=== PATIENT | female | born 2005 | race Caucasian/White ===

== ENCOUNTER 2023-03-21 15:43 | Inpatient (IN) ==
--- NOTE | 2023-03-21 16:06 | ED Triage Note ---
Date of Service March 21, 2023 History of Present Illness This patient was briefly evaluated while in triage. An abbreviated physical exam was performed. This patient is a 18-year-old Female who presents to the ED for evaluation of upper back, shoulder, and upper chest pain that started this morning. Seems to be more in her muscles. No SOB. No fevers or URI symptoms. She went to the gym yesterday, but wasn't lifting heavy weights. Physical Exam GENERAL: Non-toxic and in no acute distress. HEENT: Pupils equal. No obvious scleral icterus. HEART: Regular rate and rhythm. LUNGS: Clear to auscultation. No accessory muscle use. ABDOMEN: Soft, non-tender to palpation. NEURO: Alert and oriented. No obvious neurological deficits on quick neuro exam. MUSCULOSKELETAL: No tenderness to palpation of the cervical, thoracic, or lumbar spine. Tender to palpation over the bilateral trapezius muscles and the left pectoralis muscles. Full ROM of the left shoulder with minimal pain. Initial orders for labs and / or imaging were placed and patient was placed in the waiting area until a bed is available. Please see further documentation for the full ED course.
--- NOTE | 2023-03-21 16:36 | XRay Report ---
XR chest 1V not portable CLINICAL HISTORY: Atypical chest pain. COMPARISON STUDY: No previous studies for comparison. FINDINGS: Lung volumes are normal. Lungs are clear. There is no pneumothorax or pleural effusion. Car diac size is normal. Mediastinal contours are normal. There is no evidence for pulmonary edema. IMPRESSION: No acute cardiopulmonary findings. ACT 112: Negative or not required by law. Electronically signed by: Ralph Camara M.D. 03/21/2023 4:34 PM
--- NOTE | 2023-03-21 17:02 | Emergency Department Note ---
Impression & Plan Chest pain, Elevated troponin, Nausea, vomiting and diarrhea ED Provider Note CHIEF COMPLAINT: Chest and upper back pain HISTORY OF PRESENT ILLNESS: This 18-year-old female patient presents to the emergency department via private vehicle for evaluation of chest and upper back pain. The patient states the pain started yesterday. She was sick with nausea and vomiting from through Sunday. She states she was feeling well enough yesterday to go to the gym where she walked on the treadmill and did back exercises. She denies exertional symptoms at this time. She does admit to al cohol use over the weekend as well as yesterday. She denies any drug use. The patient states she has a history of cardiac disease in her uncle, but is uncertain of what the disease is. She states that she believes her brother has palpitations and notes she was seen by clinical safety specialist without any diagnosis. The patient denies any shortness of breath. No persistent nausea or vomiting. The pain is not worse with exacerbation, movement. The left shoulder pain is somewhat worse with palpation. She has not taken any medication for her symptoms. She is eating and drinking without difficulty. No upper respiratory infection symptoms including congestion, runny nose, sore throat, or cough. Pat iejose denies any leg pain or swelling. She denies any history of DVT or PE. Pt. is on OCPs. REVIEW OF SYSTEMS: A 10 system review of systems was performed with positives and pertinent negatives listed in the history of present illness. All other systems were reviewed and are negative. ALLERGIES: None PHYSICAL EXAM: VITALS: Vitals are noted on the nurse's note and reviewed by myself. Vital signs stable. GENERAL: This is a 18-year-old, in no acute distress, nondiaphoretic, well-developed well-nourished. SKIN: The skin was without rashes, erythema, edema, or bruising. There is no tenting of the skin. Capillary refill less than 2 seconds. HEAD: Normocephalic atraumatic. EARS: External auditory canals clear, tympanic membranes pearly quinteros without erythema or effusion bilaterally. No hemotympanum. Negative granda sign EYES: Pupils equal round and reactive to light and accommodation. Conjunctivae without injection, sclerae without icterus. Extraocular movements intact. NOSE: Patent, turbinates without inflammation or discharge. No sinus tenderness. MOUTH: Mucous membranes moist. Tonsils are not enlarged. Pharynx without erythema or exudate. Uvula midline. Airway patent. Tongue does not deviate. NECK: Supple without nuchal rigidity. No lymphadenopathy. No thyromegaly. Cervical spine is nontender. No JVD. HEART: Regular rate and rhythm without murmurs gallops or rubs. LUNGS: Clear to auscultation bilaterally without wheezes, rales or rhonchi. No retractions or accessory muscle use. ABDOMEN: Positive bowel sounds x 4. Soft, nontender, without masses or organomegaly. Macedo sign negative. No guarding or rebound tenderness. MUSCULOSKELETAL: No muscle atrophy, erythema, or edema noted. Tenderness to palpation of the trapezius muscle on the left. Full range of motion without joint tenderness in all extremities. No tenderness to palpation. Normal gait. Strength 5/5 throughout. NEURO: Patient was alert and oriented to person place and time. No focal neurological deficits. 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 The monitor showed a normal sinus rhythm at a ventricular rate of 90 bpm, per my interpretation. EKG #1 at 1702, per my interpretation: Normal sinus rhythm with T wave inversion in the anterior lateral leads. Ventricular rate of [address] elevation or depression. No prior EKG available for comparison EKG #2 at 1954, per my interpretation: Sinus tachycardia with a ventricular rate of 113 bpm. Rightward axis. T wave inversion in the anterior lateral leads. No ST elevation or depression. EMERGENCY DEPARTMENT COURSE: The patient was seen and evaluated as above. Patient was initially seen in triage by triage provider due to high volume, high acuity in the emergency department Chest x-ray and EKG #1 ordered by triage provider were reviewed by me. No acute findings. The patient was examined. There is some tenderness of the trapezius muscle on the left. No reproducible chest wall tenderness to palpation. I had a conversation regarding the work-up with the patient as well as her mother on speaker phone in the room. Utilizing shared decision-making, we did elect to perform further evaluation with labs. IV access obtained, labs drawn. Labs were reviewed. Mild leukocytosis of 11. 48. No anemia or thrombocytopenia. INR 1.0. D-dimer 340. Renal, hepatic function and electrolytes without significant abnormality. Lipase 22. Procalcitonin less than 0.05. TSH 1.816. hCG negative. The patient's high- sensitivity troponin is mildly elevated at 16.3. I discussed this finding with the patient at bedside. I recommended further laboratory evaluation, repeat troponin testing, as well as CT angiogram of the chest to rule out PE or other intrathoracic abnormality. The patient was agreeable. Additional labs ordered and CT angiogram completed. This was reviewed by radiologist and was negative for acute pathology. [place], Lyme disease testing, and respiratory bio fire testing were negative for acute abnormality. Repeat troponin testing was further elevated at 28.9. I did discuss these findings with the patient at bedside and her mother on speaker phone on the patient's cell phone. I advised them of the work-up completed here in the emergency department, the additional testing, CT angiogram results. Given the elevation in troponin, unclear etiology of her symptoms, but I am concerned for possible cardiac disease. No evidence of acute coronary syndrome at this time, however I do recommend admission to the hospital for observation/admission for further evaluation and echocardiogram. The patient and her mother were agreeable with this treatment plan. The patient's mother notes she plans to drive here to be with the patient. The patient was initially hesitant to stay in the hospital, but after conversation with her mother was agreeable. I did discuss the case with the dude ranch manager. I discussed the case with Dr. Barker, [facility] hospitalist physician. He did agree to see and evaluate the patient. Please see hospitalist dictation regarding ongoing management care of this patient. I did work closely with my attending physician throughout this case. We did have several meaningful conversations regarding this patient, recommendations for further work-up, as well as admission. Differential diagnosis includes Cardiac ischemia, aortic dissection, pulmonary embolism, pneumothorax, pneumonia, pericarditis, myocarditis, esophageal rupture, GERD, cholecystitis, pancreatitis, musculoskeletal, as well as other pathologies. I attest that I have personally reviewed the patient's current medication list. Blood Pressure Screening: Patient was found to have a slightly elevated blood pressure due to circumstances. I do not believe that the patient requires hypertension monitoring. The chart was completed utilizing [employer] voice recognition software. Grammatical errors, random word insertions, pronoun errors, and incomplete sentences are an occasional consequence of this system due to software limitations, ambient noise, and hardware issues. Any formal questions or concerns about the content, text, or information contained within the body of this dictation should be directly addressed to the provider for clarification. Past Med/Surg History Medical History No pertinent past medical history Social History Smoking Status: Never smoker Preferred Language: Beninese Feels Safe at Home: Yes Home Meds Home Medications Medication Instructions Recorded Confirmed drospirenone 3 mg-ethinyl 1 tab PO QPM 03/21/23 03/21/23 estradiol 0.02 mg tablet (Vestura (28)) Results & Data (ED) Vital Signs Vital Signs - 24 hr 03/21/23 16:04 03/21/23 17:06 03/21/23 19:44 Temperature 36.7 C Temperature Source Temporal Artery Scan Pulse Rate 90 100 H Pulse Rate [Finger] 125 H Respiratory Rate 18 20 14 Respiratory Effort / Characteristics Non-Labored Non-Labored Spontaneous Respiratory Depth Normal Normal Blood Pressure 158/103 H 160/99 H Blood Pressure [Right Arm] 135/83 Blood Pressure Mean 121 119 Blood Pressure Mean [Right Arm] 100 Pulse Oximetry 100 97 100 Oxygen Delivery Method Room Air Sepsis Recent Fever Within 48 Hours No Sepsis New/Unexplained Change in Mental Status No Sepsis Action Taken by Nursing No Action Required 03/21/23 20:59 03/21/23 21:00 03/21/23 22:07 Temperature Temperature Source Pulse Rate Pulse Rate [Finger] 108 H 110 H Respiratory Rate 16 14 Respiratory Effort / Characteristics Non-Labored Spontaneous Non-Labored Spontaneous Respiratory Depth Normal Normal Blood Pressure Blood Pressure [Right Arm] 141/86 H 133/92 Blood Pressure Mean Blood Pressure Mean [Right Arm] 104 105 Pulse Oximetry 100 100 110 H Oxygen Delivery Method Room Air Room Air Room Air Sepsis Recent Fever Within 48 Hours Sepsis New/Unexplained Change in Mental Status Sepsis Action Taken by Nursing Laboratory Data 03/21/23 17:30 03/21/23 17:30 Lab Results 03/21/23 03/21/23 03/21/23 Range/Units 17:30 17:30 17:30 WBC 11.48 H (4.8-10.8) K/ul RBC 4.87 (4.20-5.40) M/uL Hgb 14.2 (12.0-16.0) g/dl Hct 39.1 (37.0-47.0) % MCV 80.3 (80.0-100.0) fL MCH 29.2 (25.0-34.0) pg MCHC 36.3 H (32.0-36.0) g/dL RDW Std Deviation 36.4 (36.4-46.3) fL RDW Coeff of Baltazar 12.5 (11.5-14.5) % Plt Count 264 (130-400) K/uL MPV 10.1 (9.4-12.4) fL Immature Gran % (Auto) 0.4 % Neut % (Auto) 75.8 % Lymph % (Auto) 14.3 % [place] % (Auto) 8.4 % Eos % (Auto) 0.8 % Baso % (Auto) 0.3 % Neut # (Auto) 8.71 H (1.40-6.50) K/uL Lymph # (Auto) 1.64 (1.20-3.40) K/uL [place] # (Auto) 0.96 H (0.11-0.59) K/uL Eos # (Auto) 0.09 (0.00-0.50) K/uL Baso # (Auto) 0.03 (0.00-0.20) K/uL Immature Gran # (Auto) 0.05 (0.01-0.20) K/uL PT 10.5 (9.0-12.0) Seconds INR 1.0 (0.9-1.1) APTT 28.5 (21.0-31.0) Seconds PTT Ratio 1.0 D-Dimer 340 (0-500) ug/L FEU Sodium 137 (136-145) mmol/L Potassium 3.3 L (3.5-5.1) mmol/L Chloride 104 (98-107) mmol/L Carbon Dioxide 24 (21-32) mmol/L Anion Gap 9 (3-11) BUN 9 (6-23) mg/dl Creatinine 0.69 (0.6-1.2) mg/dl Est Cr Clr Drug Dosing 87.1 ml/min Est GFR ( Amer) 145.2 ml/min Est GFR (Non-Af Amer) 125.3 ml/min BUN/Creatinine Ratio 13.0 (10-20) Glucose 98 (70-99(Fasting)) mg/dl Calcium 8.9 (8.6-10.3) mg/dl Magnesium 1.4 L (1.7-2.4) mg/dl Total Bilirubin 0.4 (0.2-1.0) mg/dl AST 21 (13-39) U/L ALT 21 (7-52) U/L Alkaline Phosphatase 48 (34-104) U/L Total Creatine Kinase 41 (26-192) U/L Troponin I High Sens 16.3 H (0-14) pg/ml Total Protein 7.1 (6.0-8.3) gm/dl Albumin 4.1 (3.4-5.0) gm/dl Globulin 3.0 (2.5-4.0) gm/dl Albumin/Globulin Ratio 1.4 (0.9-2) Lipase 22 (11-82) U/L Procalcitonin (0-0.5) ng/ml TSH (0.300-4.500) uIu/ml HCG, Qual (Negative) Adenovirus (PCR) (NotDetected) Anaplasma Smear Babesia Smear B. pertussis DNA (PCR) (NotDetected) B.parapertussis DNA PCR (NotDetected) Lyme Disease IgG Ab (Negative) Lyme Disease IgM Ab (Negative) C. pneumoniae DNA (PCR) (NotDetected) Coronavirus OC43 (PCR) (NotDetected) Coronavirus HKU1 (PCR) (NotDetected) Coronavirus 229E (PCR) (NotDetected) SARS-CoV-2 (PCR) (NotDetected) Coronavirus NL63 (PCR) (NotDetected) Monoscreen (Negative) Human Metapneumovir PCR (NotDetected) Influenza Type A (PCR) (NotDetected) Influenza Type B (PCR) (NotDetected) M. pneumoniae (PCR) (NotDetected) Parainfluenza 1 (PCR) (NotDetected) Parainfluenza 2 (PCR) (NotDetected) Parainfluenza 3 (PCR) (NotDetected) Parainfluenza 4 (PCR) (NotDetected) RSV (PCR) (NotDetected) Entero/Rhino (PCR) (NotDetected) 03/21/23 03/21/23 03/21/23 Range/Units 17:30 17:30 20:00 WBC (4.8-10.8) K/ul RBC (4.20-5.40) M/uL Hgb (12.0-16.0) g/dl Hct (37.0-47.0) % MCV (80.0-100.0) fL MCH (25.0-34.0) pg MCHC (32.0-36.0) g/dL RDW Std Deviation (36.4-46.3) fL RDW Coeff of Baltazar (11.5-14.5) % Plt Count (130-400) K/uL MPV (9.4-12.4) fL Immature Gran % (Auto) % Neut % (Auto) % Lymph % (Auto) % [place] % (Auto) % Eos % (Auto) % Baso % (Auto) % Neut # (Auto) (1.40-6.50) K/uL Lymph # (Auto) (1.20-3.40) K/uL [place] # (Auto) (0.11-0.59) K/uL Eos # (Auto) (0.00-0.50) K/uL Baso # (Auto) (0.00-0.20) K/uL Immature Gran # (Auto) (0.01-0.20) K/uL PT (9.0-12.0) Seconds INR (0.9-1.1) APTT (21.0-31.0) Seconds PTT Ratio D-Dimer (0-500) ug/L FEU Sodium (136-145) mmol/L Potassium (3.5-5.1) mmol/L Chloride (98-107) mmol/L Carbon Dioxide (21-32) mmol/L Anion Gap (3-11) BUN (6-23) mg/dl Creatinine (0.6-1.2) mg/dl Est Cr Clr Drug Dosing ml/min Est GFR ( Amer) ml/min Est GFR (Non-Af Amer) ml/min BUN/Creatinine Ratio (10-20) Glucose (70-99(Fasting)) mg/dl Calcium (8.6-10.3) mg/dl Magnesium (1.7-2.4) mg/dl Total Bilirubin (0.2-1.0) mg/dl AST (13-39) U/L ALT (7-52) U/L Alkaline Phosphatase (34-104) U/L Total Creatine Kinase (26-192) U/L Troponin I High Sens (0-14) pg/ml Total Protein (6.0-8.3) gm/dl Albumin (3.4-5.0) gm/dl Globulin (2.5-4.0) gm/dl Albumin/Globulin Ratio (0.9-2) Lipase (11-82) U/L Procalcitonin (0-0.5) ng/ml TSH 1.816 (0.300-4.500) uIu/ml HCG, Qual Negative (Negative) Adenovirus (PCR) Not Detected (NotDetected) Anaplasma Smear Babesia Smear B. pertussis DNA (PCR) Not Detected (NotDetected) B.parapertussis DNA PCR Not Detected (NotDetected) Lyme Disease IgG Ab (Negative) Lyme Disease IgM Ab (Negative) C. pneumoniae DNA (PCR) Not Detected (NotDetected) Coronavirus OC43 (PCR) Not Detected (NotDetected) Coronavirus HKU1 (PCR) Not Detected (NotDetected) Coronavirus 229E (PCR) Not Detected (NotDetected) SARS-CoV-2 (PCR) Not Detected (NotDetected) Coronavirus NL63 (PCR) Not Detected (NotDetected) Monoscreen (Negative) Human Metapneumovir PCR Not Detected (NotDetected) Influenza Type A (PCR) Not Detected (NotDetected) Influenza Type B (PCR) Not Detected (NotDetected) M. pneumoniae (PCR) Not Detected (NotDetected) Parainfluenza 1 (PCR) Not Detected (NotDetected) Parainfluenza 2 (PCR) Not Detected (NotDetected) Parainfluenza 3 (PCR) Not Detected (NotDetected) Parainfluenza 4 (PCR) Not Detected (NotDetected) RSV (PCR) Not Detected (NotDetected) Entero/Rhino (PCR) Not Detected (NotDetected) 09/13/23 09/13/23 09/13/23 Range/Units 20:54 20:54 20:54 WBC (4.8-10.8) K/ul RBC (4.20-5.40) M/uL Hgb (12.0-16.0) g/dl Hct (37.0-47.0) % MCV (80.0-100.0) fL MCH (25.0-34.0) pg MCHC (32.0-36.0) g/dL RDW Std Deviation (36.4-46.3) fL RDW Coeff of Baltazar (11.5-14.5) % Plt Count (130-400) K/uL MPV (9.4-12.4) fL Immature Gran % (Auto) % Neut % (Auto) % Lymph % (Auto) % [place] % (Auto) % Eos % (Auto) % Baso % (Auto) % Neut # (Auto) (1.40-6.50) K/uL Lymph # (Auto) (1.20-3.40) K/uL [place] # (Auto) (0.11-0.59) K/uL Eos # (Auto) (0.00-0.50) K/uL Baso # (Auto) (0.00-0.20) K/uL Immature Gran # (Auto) (0.01-0.20) K/uL PT (9.0-12.0) Seconds INR (0.9-1.1) APTT (21.0-31.0) Seconds PTT Ratio D-Dimer (0-500) ug/L FEU Sodium (136-145) mmol/L Potassium (3.5-5.1) mmol/L Chloride (98-107) mmol/L Carbon Dioxide (21-32) mmol/L Anion Gap (3-11) BUN (6-23) mg/dl Creatinine (0.6-1.2) mg/dl Est Cr Clr Drug Dosing ml/min Est GFR ( Amer) ml/min Est GFR (Non-Af Amer) ml/min BUN/Creatinine Ratio (10-20) Glucose (70-99(Fasting)) mg/dl Calcium (8.6-10.3) mg/dl Magnesium (1.7-2.4) mg/dl Total Bilirubin (0.2-1.0) mg/dl AST (13-39) U/L ALT (7-52) U/L Alkaline Phosphatase (34-104) U/L Total Creatine Kinase (26-192) U/L Troponin I High Sens 28.9 H D (0-14) pg/ml Total Protein (6.0-8.3) gm/dl Albumin (3.4-5.0) gm/dl Globulin (2.5-4.0) gm/dl Albumin/Globulin Ratio (0.9-2) Lipase (11-82) U/L Procalcitonin (0-0.5) ng/ml TSH (0.300-4.500) uIu/ml HCG, Qual (Negative) Adenovirus (PCR) (NotDetected) Anaplasma Smear See Comment Babesia Smear See Comment B. pertussis DNA (PCR) (NotDetected) B.parapertussis DNA PCR (NotDetected) Lyme Disease IgG Ab Negative (Negative) Lyme Disease IgM Ab Negative (Negative) C. pneumoniae DNA (PCR) (NotDetected) Coronavirus OC43 (PCR) (NotDetected) Coronavirus HKU1 (PCR) (NotDetected) Coronavirus 229E (PCR) (NotDetected) SARS-CoV-2 (PCR) (NotDetected) Coronavirus NL63 (PCR) (NotDetected) Monoscreen Negative (Negative) Human Metapneumovir PCR (NotDetected) Influenza Type A (PCR) (NotDetected) Influenza Type B (PCR) (NotDetected) M. pneumoniae (PCR) (NotDetected) Parainfluenza 1 (PCR) (NotDetected) Parainfluenza 2 (PCR) (NotDetected) Parainfluenza 3 (PCR) (NotDetected) Parainfluenza 4 (PCR) (NotDetected) RSV (PCR) (NotDetected) Entero/Rhino (PCR) (NotDetected) 03/21/23 Range/Units 20:54 WBC (4.8-10.8) K/ul RBC (4.20-5.40) M/uL Hgb (12.0-16.0) g/dl Hct (37.0-47.0) % MCV (80.0-100.0) fL MCH (25.0-34.0) pg MCHC (32.0-36.0) g/dL RDW Std Deviation (36.4-46.3) fL RDW Coeff of Baltazar (11.5-14.5) % Plt Count (130-400) K/uL MPV (9.4-12.4) fL Immature Gran % (Auto) % Neut % (Auto) % Lymph % (Auto) % [place] % (Auto) % Eos % (Auto) % Baso % (Auto) % Neut # (Auto) (1.40-6.50) K/uL Lymph # (Auto) (1.20-3.40) K/uL [place] # (Auto) (0.11-0.59) K/uL Eos # (Auto) (0.00-0.50) K/uL Baso # (Auto) (0.00-0.20) K/uL Immature Gran # (Auto) (0.01-0.20) K/uL PT (9.0-12.0) Seconds INR (0.9-1.1) APTT (21.0-31.0) Seconds PTT Ratio D-Dimer (0-500) ug/L FEU Sodium (136-145) mmol/L Potassium (3.5-5.1) mmol/L Chloride (98-107) mmol/L Carbon Dioxide (21-32) mmol/L Anion Gap (3-11) BUN (6-23) mg/dl Creatinine (0.6-1.2) mg/dl Est Cr Clr Drug Dosing ml/min Est GFR ( Amer) ml/min Est GFR (Non-Af Amer) ml/min BUN/Creatinine Ratio (10-20) Glucose (70-99(Fasting)) mg/dl Calcium (8.6-10.3) mg/dl Magnesium (1.7-2.4) mg/dl Total Bilirubin (0.2-1.0) mg/dl AST (13-39) U/L ALT (7-52) U/L Alkaline Phosphatase (34-104) U/L Total Creatine Kinase (26-192) U/L Troponin I High Sens (0-14) pg/ml Total Protein (6.0-8.3) gm/dl Albumin (3.4-5.0) gm/dl Globulin (2.5-4.0) gm/dl Albumin/Globulin Ratio (0.9-2) Lipase (11-82) U/L Procalcitonin < 0.05 (0-0.5) ng/ml TSH (0.300-4.500) uIu/ml HCG, Qual (Negative) Adenovirus (PCR) (NotDetected) Anaplasma Smear Babesia Smear B. pertussis DNA (PCR) (NotDetected) B.parapertussis DNA PCR (NotDetected) Lyme Disease IgG Ab (Negative) Lyme Disease IgM Ab (Negative) C. pneumoniae DNA (PCR) (NotDetected) Coronavirus OC43 (PCR) (NotDetected) Coronavirus HKU1 (PCR) (NotDetected) Coronavirus 229E (PCR) (NotDetected) SARS-CoV-2 (PCR) (NotDetected) Coronavirus NL63 (PCR) (NotDetected) Monoscreen (Negative) Human Metapneumovir PCR (NotDetected) Influenza Type A (PCR) (NotDetected) Influenza Type B (PCR) (NotDetected) M. pneumoniae (PCR) (NotDetected) Parainfluenza 1 (PCR) (NotDetected) Parainfluenza 2 (PCR) (NotDetected) Parainfluenza 3 (PCR) (NotDetected) Parainfluenza 4 (PCR) (NotDetected) RSV (PCR) (NotDetected) Entero/Rhino (PCR) (NotDetected) Administered Medications Discontinued Medications Sodium Chloride (Nss) 1,000 mls @ 999 mls/hr IV .[id number] ONE Stop: 03/21/23 18:16 Last Infusion: 03/21/23 19:16 Dose: 0 mls/hr Documented By: Admin: 03/21/23 17:32 Dose: 999 mls/hr Documented By: SATYA Ioversol (Ioversol 350 Mg 125ml Prefilled Syringe) 117 ml IV ONCE ONE Stop: 03/21/23 20:28 Last Admin: 03/21/23 20:28 Dose: 117 ml Documented By: HERMAN Ketorolac Tromethamine (Ketorolac Tromethamine 15 Mg/Ml Vial) 15 mg IV NOW STA Stop: 03/21/23 17:17 Last Admin: 03/21/23 17:32 Dose: 15 mg Documented By: MT Imaging Data Radiologist's Impression: Chest X-Ray 03/21/23 16:06 XR chest 1V not portable CLINICAL HISTORY: Atypical chest pain. COMPARISON STUDY: No previous studies for comparison. FINDINGS: Lung volumes are normal. Lungs are clear. There is no pneumothorax or pleural effusion. Cardiac size is normal. Mediastinal contours are normal. There is no evidence for pulmonary edema. IMPRESSION: No acute cardiopulmonary findings. ACT 112: Negative or not required by law. Electronically signed by: Ralph Camara M.D. 03/21/2023 4:34 PM Chest CTA 03/21/23 19:45 Exam(s): CTA CHEST IV Amt: 117ml optiray 350 EXAM: CT Angiography Chest With Intravenous Contrast CLINICAL HISTORY: Reason for exam: chest pain,. TECHNIQUE: Axial computed tomographic angiography images of the chest with intravenous contrast. CTDI is 5.94 mGy and DLP is 291.72 mGy-cm. Automated exposure control was utilized for the study. A dose lowering technique was utilized adhering to the principles of ALARA. MIP reconstructed images were created and reviewed. COMPARISON: No relevant prior studies available. FINDINGS: Pulmonary arteries: Unremarkable. No pulmonary embolism. Aorta: No acute findings. No thoracic aortic aneurysm. Lungs: Unremarkable. No mass. No consolidation. Pleural space: Unremarkable. No significant effusion. No pneumothorax. Heart: Unremarkable. No cardiomegaly. No significant pericardial effusion. No evidence of RV dysfunction. Bones/joints: No acute fracture. No dislocation. Soft tissues: Unremarkable. Lymph nodes: Unremarkable. No enlarged lymph nodes. IMPRESSION: Normal chest CTA. No pulmonary embolism. Electronically signed by: Aron Resendiz MD 03/21/23 20:40 PM Discharge Plan Visit Data Chief Complaint: Pain (Generalized) Stated Complaint: UPPER BACK AND SHOULDER PAIN, CHEST PAIN ED Provider: Pablo Carvajal ED Midlevel Provider: Mariam Echevarria Discharge Problem: Chest pain, Elevated troponin, Nausea, vomiting and diarrhea Patient Disposition: Admitted As Inpatient Forms Stand Alone Forms: [facility] Prescriptions Prescriptions: No Action drospirenone-ethinyl estradiol [Vestura (28)] 3-0.02 mg Tablet 1 tab PO QPM Referrals Referrals: PCP,NO [Physician] -
[2023-03-21] MEDS ORDERED: SODIUM CHLORIDE 0.9% 1,000 ML IV ONE (17:16)
[2023-03-21] MEDS ORDERED: KETOROLAC TROMETHAMINE 15 MG/ML VIAL IV STA (17:16)
[2023-03-21 18:21] LABS: Basophils # (auto) 0.03 K/uL (0.00-0.20); Basophils % (auto) 0.3 %; Eosinophils # (auto) 0.09 K/uL (0.00-0.50); Eosinophils % (auto) 0.8 %; Hematocrit (blood only) 39.1 % (37.0-47.0); Hemoglobin 14.2 g/dl (12.0-16.0); Immature Granulocytes # (auto) 0.05 K/uL (0.01-0.20); Immature Granulocytes % (auto) 0.4 %; Lymphocytes # (auto) 1.64 K/uL (1.20-3.40); Lymphocytes % (auto) 14.3 %; Mean Corpuscular Hemoglobin 29.2 pg (25.0-34.0); Mean Corpuscular Hgb Conc 36.3 g/dL (32.0-36.0); Mean Corpuscular Volume 80.3 fL (80.0-100.0); Mean Platelet Volume 10.1 fL (9.4-12.4); Monocytes # (auto) 0.96 K/uL (0.11-0.59); Monocytes % (auto) 8.4 %; Neutrophils # (auto) 8.71 K/uL (1.40-6.50); Neutrophils % (auto) 75.8 %; Platelet Count 264 K/uL (130-400); RDW Coefficient of Variation 12.5 % (11.5-14.5); RDW Standard Deviation 36.4 fL (36.4-46.3); Red Blood Count 4.87 M/uL (4.20-5.40); White Blood Count 11.48 K/ul (4.8-10.8)
[2023-03-21 18:38] LABS: Albumin Globulin Ratio 1.4 (0.9-2); Albumin Level 4.1 gm/dl (3.4-5.0); Bilirubin,Total 0.4 mg/dl (0.2-1.0); Calcium 8.9 mg/dl (8.6-10.3); Creatinine Clr Calc Pharmacy 87.1 ml/min; Est GFR (African American) 145.2 ml/min; Est GFR (Non-African American) 125.3 ml/min; Magnesium 1.4 mg/dl (1.7-2.4); Potassium 3.3 mmol/L (3.5-5.1); Total Protein 7.1 gm/dl (6.0-8.3)
[2023-03-21 18:42] LABS: Pregnancy Test, Serum Negative (Negative)
[2023-03-21 18:43] LABS: Troponin I High Sensitivity 16.3 pg/ml (0-14)
[2023-03-21 18:47] LABS: D Dimer 340 ug/L FEU (0-500); Partial Thromboplastin Time 28.5 Seconds (21.0-31.0); Prothrombin Time 10.5 Seconds (9.0-12.0)
[2023-03-21] MEDS ORDERED: IOVERSOL 350 MG 125mL Prefilled Syringe IV ONE (20:27)
--- NOTE | 2023-03-21 20:40 | CT Scan Report ---
Exam(s): CTA CHEST IV Amt: 117ml optiray 350 EXAM: CT Angiography Chest With Intravenous Contrast CLINICAL HISTORY: Reason for exam: chest pain,. TECHNIQUE: Axial computed tomographic angiography images of the chest with intravenous contrast. CTDI is 5.94 mGy and DLP is 291.72 mGy-cm. Automated exposure control was utilized for the study. A dose lowering technique was utilized adhering to the principles of ALARA. MIP reconstructed images were created and reviewed. COMPARISON: No relevant prior studies available. FINDINGS: Pulmonary arteries: Unremarkable. No pulmonary embolism. Aorta: No acute findings. No thoracic aortic aneurysm. Lungs: Unremarkable. No mass. No consolidation. Pleural space: Unremarkable. No significant effusion. No pneumothorax. Heart: Unremarkable. No cardiomegaly. No significant pericardial effusion. No evidence of RV dysfunction. Bones/joints: No acute fracture. No dislocation. Soft tissues: Unremarkable. Lymph nodes: Unremarkable. No enlarged lymph nodes. IMPRESSION: Normal chest CTA. No pulmonary embolism. Electronically signed by: Aron Resendiz MD 03/21/23 20:40 PM
[2023-03-21 21:08] LABS: Adenovirus PCR Not Detected (NotDetected); Bordetella parapertussis PCR Not Detected (NotDetected); Bordetella pertussis PCR Not Detected (NotDetected); Chlamydia pneumoniae PCR Not Detected (NotDetected); Coronavirus 229E PCR Not Detected (NotDetected); Coronavirus CoV-2 (COVID19)PCR Not Detected (NotDetected); Coronavirus HKU1 PCR Not Detected (NotDetected); Coronavirus NL63 PCR Not Detected (NotDetected); Coronavirus OC43PCR Not Detected (NotDetected); Human Metapneumovirus PCR Not Detected (NotDetected); Influenza A PCR Not Detected (NotDetected); Influenza B PCR Not Detected (NotDetected); Mycoplasma pneumoniae PCR Not Detected (NotDetected); Parainfluenza Virus 1 PCR Not Detected (NotDetected); Parainfluenza Virus 2 PCR Not Detected (NotDetected); Parainfluenza Virus 3 PCR Not Detected (NotDetected); Parainfluenza Virus 4 PCR Not Detected (NotDetected); Respiratory Syncytial VirusPCR Not Detected (NotDetected); Rhinovirus/Enterovirus PCR Not Detected (NotDetected)
[2023-03-21 21:35] LABS: Monotest Negative (Negative)
[2023-03-21 21:59] LABS: Lyme Ab IgG w/WB Rflx Negative (Negative); Lyme Ab IgM w/WB Rflx Negative (Negative)
[2023-03-21] MEDS ORDERED: POTASSIUM CHLORIDE CRTAB 20 MEQ TABCR PO STA (23:43)
--- NOTE | 2023-03-21 23:43 | History & Physical Report ---
Date of Service March 21, 2023 Assessment & Plan (1) Chest pain: Plan: -Chest pain likely due to viral pericarditis/myocarditis, less suspicion for ACS -Mild troponin elevation 16 -> 29, EKG w/o overt ST abnormality -Improved s/p Toradol 15 mg IV -We will continue Toradol 15 mg q6h PRN IV for pain control in addition to Tylenol 1000 mg PO q8h PRN -TTE pending -Telemetry monitoring -Trend troponin until peak -Anticipate d/c in AM (2) Hypokalemia: Plan: -K 3.3 on admission -Likely 2/2 GI losses -40 meq PO ordered in ER -Monitor BMP (3) Hypomagnesemia: Plan: -Mg 1.4 on admission -Likely 2/2 GI losses -Repletion ongoing with IV MgSO4 -Monitor Mg (4) Nausea, vomiting and diarrhea: Plan: -Likely viral GI illness, improving with near complete symptom resolution at this time -Deferring addtionional IV fluids as pt can hydrate adequately with oral intake (5) Leukocytosis: Plan: -Mild leukocytosis WBC 11.5, negative PCT -Likely 2/2 viral illness -Deferring antibiotics, -Monitor CBC Plan FENGI: Regular Code status: Full DVT prophylaxis: Ambulation Isolation: None Disposition: Medical/surgical with telemetry History of Present Illness Chief Complaint: Chest pain Primary Care Provider: [facility] Pt is 18 yo healthy F presenting with chest pain. Pt states she has had watery diarrhea with 3 episodes daily and stomach ache since 03/15. Several others at [employer] have also experienced this. Her symptoms did improve and she subsequently went to a republican the night of 03/20 at which she imbibed several vodka shots as part of a drinking game referred to as "shots around the world". The following morning on [birth year] birthday, pt reported sudden onset of midsternal chest pain radiating to b/l shoulders and upper back- moderate severity 4/10, dull quality, some associated nausea. Symptoms persisted until she came to ED in afternoon, primarily due to concerns about heart disease as she does have some FMH of cardiac disease in her uncle and supposedly arrhythmia in her brother. Pt did have a screening TTE done about 4 years prior which was normal. Pt arrived to ER with BP 160/100, HR 100s-120s. Initial evaluation significant for WBC 11.5, K 3.3, Mg 1.4, troponin 16.3 -> 29. TSH, PCT, RVP, Lyme, anaplasma, babesia negative. CXR and CTA negative. EKG NSR with anterolateral T wave inversions. ER interventions include 1L NSS bolus and Toradol 15 mg IV. At present, pt reports full resolution of chest pain with Toradol and feels well, no acute complaints. 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 Beliefs That Will Affect Care: None Current Living Situation: Other Current Living Situation Comment: [employer] student on campus Feels Safe at Home: Yes Assistive Devices: None Review of Systems Review of Systems: Per HPI Physical Exam Physical Exam: General: well-appearing, no acute distress HEENT: PERRL, EOMI, conjunctivae clear without injection, anicteric sclerae, moist mucous membranes, clear oropharynx without exudate or erythema Neck: supple, trachea midline, no thyromegaly, no JVD, no cervical lymphadenopathy CV: RRR, normal S1 and S2, no murmurs Resp: CTAB, no increased work of breathing, no crackles or wheezes Abd: Soft, nontender, nondistended, no guarding or rebound, no hepatosplenomegaly MSK: Normal bulk of all four extremities Neuro: AOx3, no focal motor or sensory deficits Skin: no rashes or lesions, warm and dry Ext: no LE peripheral edema or erythema, capillary refill <2s in all four extremities, 2+ LE peripheral pulses b/l Results & Data Results & Data Vital Signs (Past 12 Hours) Vital Signs Temp Pulse Pulse Resp BP BP Pulse Ox 03/21/23 22:07 110 H 14 133/92 110 H 03/21/23 21:00 108 H 16 141/86 H 100 03/21/23 20:59 100 03/21/23 19:44 125 H 14 135/83 100 03/21/23 17:06 100 H 20 160/99 H 97 03/21/23 16:04 36.7 C 90 18 158/103 H 100 O2 Del Method 03/21/23 22:07 Room Air 03/21/23 21:00 Room Air 03/21/23 20:59 Room Air 03/21/23 19:44 Room Air 03/21/23 17:06 03/21/23 16:04 Supervising Physician Co-Signing Physician Notes Attending addendum: I have physically seen this patient, have supervised the medical residents activities, and agree with the H&P unless as otherwise noted. Assessment and Plan: Elevated troponin- The patient will be admitted to telemetry for serial cardiac enzymes, serial EKG's, cardiac rhythm monitoring and a 2-D echocardiogram with Dopplers. Initial troponin 16.3, with follow-up 28.9 Viral PCR negative Peripheral smear for anaplasmosis and babesiosis negative Lyme IgM/IgG negative CTA chest negative for PE Status post Toradol 15 mg IV Empiric treatment with aspirin twice daily and colchicine 0.6 mg p.o. twice daily Order an EMILY Hyponatremia/hypokalemia- NSS plus KCl 20 mill colons at 100 mils per hour x1 L, recheck laboratories in a.m. Resident Activity Tracking Resident Involvement: Resident Care Provided Care Provided: Adult Hospital Medicine
[2023-03-21] MEDS ORDERED: Patient's ALLERGY Info needs ENTERED STA (23:46)
[2023-03-22] MEDS ORDERED: ACETAMINOPHEN 500 MG TAB PO PRN (01:47)
[2023-03-22] MEDS ORDERED: KETOROLAC TROMETHAMINE 15 MG/ML VIAL IV PRN (01:47)
[2023-03-22] MEDS ORDERED: MAGNESIUM SULFATE 1GM / D5W BAG IV ONE (01:51)
[2023-03-22] MEDS: MAGNESIUM SULFATE / D5W 1 GM/100 ML BAG IV SCH ×3 (02:13→06:22)
[2023-03-22 02:43] LABS: Hematocrit (blood only) 35.1 % (37.0-47.0); Hemoglobin 12.7 g/dl (12.0-16.0); Mean Corpuscular Hemoglobin 29.6 pg (25.0-34.0); Mean Corpuscular Hgb Conc 36.2 g/dL (32.0-36.0); Mean Corpuscular Volume 81.8 fL (80.0-100.0); Mean Platelet Volume 9.5 fL (9.4-12.4); Platelet Count 248 K/uL (130-400); RDW Coefficient of Variation 12.4 % (11.5-14.5); RDW Standard Deviation 37.1 fL (36.4-46.3); Red Blood Count 4.29 M/uL (4.20-5.40); White Blood Count 8.46 K/ul (4.8-10.8)
[2023-03-22 02:53] LABS: Calcium 8.1 mg/dl (8.6-10.3); Creatinine Clr Calc Pharmacy 85.8 ml/min; Est GFR (African American) 144.6 ml/min; Est GFR (Non-African American) 124.7 ml/min; Magnesium 1.7 mg/dl (1.7-2.4); Potassium 3.2 mmol/L (3.5-5.1)
--- NOTE | 2023-03-22 03:49 | Billing Data ---
Date of Service March 22, 2023 Coding Level of Care Code 13513 INT INP/OBS CARE
--- NOTE | 2023-03-22 07:38 | Discharge Summary ---
Date of Service March 22, 2023 Admission HPI Per Admitting Provider Pt is 18 yo healthy F presenting with chest pain that she feels in the center of her chest, does not radiate to the back, neck, arm or elsewhere, does not improve with leaning forward. Patient also was experiencing residual symptoms of diarrhea which has continued to improve. Pt states she has had watery diarrhea with 3 episodes daily and stomach ache since 03/15. Several others at [employer] have also experienced this. Her symptoms did improve and she subsequently went to a republican the night of 03/20 at which she imbibed several vodka shots as part of a drinking game referred to as "shots around the world". The following morning on [birth year] birthday, pt reported sudden onset of midsternal chest pain radiating to b/l shoulders and upper back- moderate severity 4/10, dull quality, some associated nausea. Symptoms persisted until she came to ED in afternoon, primarily due to concerns about heart disease as she does have some FMH of cardiac disease in her uncle and supposedly arrhythmia in her brother. Pt did have a screening TTE done about 4 years prior which was normal. Pt arrived to ER with BP 160/100, HR 100s-120s. Initial evaluation significant for WBC 11.5, K 3.3, Mg 1.4, troponin 16.3 -> 29. TSH, PCT, RVP, Lyme, anaplasma, babesia negative. CXR and CTA negative. EKG NSR with anterolateral T wave inversions. ER interventions include 1L NSS bolus and Toradol 15 mg IV. At present, pt reports full resolution of chest pain with Toradol and feels well, no acute complaints. Admission Exam Per Admitting Provider Physical Exam Physical Exam: General: well-appearing, no acute distress HEENT: PERRL, EOMI, conjunctivae clear without injection, anicteric sclerae, moist mucous membranes, clear oropharynx without exudate or erythema Neck: supple, trachea midline, no thyromegaly, no JVD, no cervical lymphadenopathy CV: RRR, normal S1 and S2, no murmurs Resp: CTAB, no increased work of breathing, no crackles or wheezes Abd: Soft, nontender, nondistended, no guarding or rebound, no hepatosplenomegaly MSK: Normal bulk of all four extremities Neuro: AOx3, no focal motor or sensory deficits Skin: no rashes or lesions, warm and dry Ext: no LE peripheral edema or erythema, capillary refill <2s in all four extremities, 2+ LE peripheral pulses b/l Principal Diagnosis Chest pain Discharge Exam Constitutional WD/WN, vitals as above Respiratory normal respiratory effort, lungs clear to auscultation Cardiovascular RRR, no murmur, no edema Discharge Data Allergies Allergy/AdvReac Type Severity Reaction Status Date / Time No Known Allergies Allergy Unverified 03/22/23 00:10 Consultations 03/21/23 22:48 ED Decision to Admit Stat Ordered Studies 03/21/23 19:45 CT angio chest PE protocol Stat Hospital Course (1) Chest pain: (2) Hypokalemia: (3) Hypomagnesemia: (4) Nausea, vomiting and diarrhea: (5) Leukocytosis: Plan Patient is 18 yo F, unremarkable PMHx, with family MHx of hypertrophic cardiomyopathy in uncle, presenting with 1 day history of chest pain with 7 day history of improving diarrheal illness. Chest pain -Chest pain likely due to viral pericarditis/myocarditis, less suspicion for ACS -Mild troponin elevation 16 -> 29 -> 19.8 -> 22.5 EKG w/o overt ST abnormality, patient's baseline EKG w/ same overt ST abnormality (inverted T waves in anterolateral leads) -Improved s/p Toradol 15 mg IV -TTE normal: No abnormalities in left ventricular systolic function, regional wall motion, ejection fraction 60-65%. -Trend troponin until peak Hypokalemia -K 3.3 on admission -Likely 2/2 GI losses -40 meq PO ordered in ER, repeat K, 3.2 Hypomagnesemia -Mg 1.4 on admission -Likely 2/2 GI losses -Repletion ongoing with IV MgSO4, repeat Mg 1.7 (nml) Nausea/vomiting/diarrhea -Likely viral GI illness, improving with near complete symptom resolution at this time -Deferring additional IV fluids as pt can hydrate adequately with oral intake Leukocytosis -Mild leukocytosis WBC 11.5, negative PCT -Likely 2/2 viral illness -Deferring antibiotics, repeat CBC, 8.5 (nml) Code status: Full DVT prophylaxis: Ambulation Isolation: None Disposition: Medical/surgical with telemetry Total Time Total Time Spent Total Time Spent (In Minutes): <30 Discharge Plan Discharge Items Patient Disposition: Home - Self-Care Reason For Visit: CHEST PAIN Discharge Diagnosis: Chest pain, resolved Activity: Resume your previous activity Non-emergency contact: Primary Care Provider Call non-emergency contact if: your pain is worsening and you have a fever Follow-up/Referrals: [facility] [Primary Care Provider] - Diet: Regular Addtl Attending Provider Instructions: You were admitted to the hospital for chest pain with accompanying symptoms of diarrhea. You were treated with supportive care, including Toradol, IV. A discharge summary will be sent to your primary care physician to ensure continuity of care. Please bring this discharge summary with you to your next office appointment so that your provider can review it at that time. Follow-up appointments: Make a follow-up appointment with your PCP at [facility] within the next week. It is very important that you follow up with them shortly after discharge from the hospital. Medications: Your medication list has been reviewed and reconciled upon discharge to ensure accuracy and continuity of care. An updated list of all your medications is included with your hospital discharge paperwork. Please review this list closely, and make note of any changes. Take your medications as instructed; do not skip a dose of your medicines. Make sure all of your doctors know every medicine you are taking (including [id number]-[id number] medicines, vitamins, and supplements). Call your primary care provider before taking any new medicines (including ygtr-oty-[id number] medicines, vitamins, and supplements), because some of these may interact with your current medications, or may make your symptoms worse. Tell your primary care provider if you cannot afford your medications. CALL 911 OR GO TO THE EMERGENCY DEPARTMENT if you experience any of the following: Sudden, severe abdominal pain or nausea/vomiting Severe chest pain, or chest pain that radiates (moves) to your jaw or arm Sudden, severe shortness of breath or difficulty breathing Thank you for allowing us to participate in your care Pending Studies at Discharge: No Stand-Alone Forms: My [employer], Work/School Release, Smoking Cessation Medications and DC Order Prescriptions: Continued drospirenone-ethinyl estradiol [Vestura (28)] 3-0.02 mg Tablet 1 tab PO QPM Discharge Orders: Discharge Order (Routine); Ordered 03/22/23 Ordered By: Lucien Pastrana Admission Data Admit Date/Time: 03/21/23 23:42 Attending Provider: Moris So Admit Provider: Charles De La Paz Primary Care Provider: [facility] Other Providers: Joshua Barker Other Interventions: Discharge Summary Assessment (RN) Last Done: 03/22/23 12:59 Supervising Physician Co-Signing Physician Notes I personally examined the patient and verified all juarez points of history and exam, discussed case, and agree with decision making with Dr Pastrana chest pain totally gone. was a pressure - points more or less to b/l SC joint region - pressure or tightness. mostly notes it as a back pain that also was accompanied by chest pain though - when asked open-ended she decribes it more as a mid back pain with accompanying chest pain rather than the other way. not positional. not stabbing. no pleuritic component. did have stomach bug then EtOH consumption. again feels totally better now. vitals noted nad heent nc at mmm breathing unlabored no accessory muscles good effort skin no rashes no pallor or icterus. troponins noted, echo noted, EKGs noted - and then mom was able to get EKG from [facility] from previous sent to us and looks extremely similar to current ones (most notably that Twave inversions/etc in the same region) chest /back pain - initial concerns for pericarditis/myopericarditis. in the end after extensive discussions, review, and review of old records more strongly suspicious upper GI (hpi fits better w esophageal given description and predominance of mid back radiation), troponin stayed extremely mild/extremely nonspecific, EKG changes that rightfully caused concern on admission were actually in line with her baseline EKG from several years ago once we had it to compare. later - echo also extremely reassuring as well. discussed all this with pt/mom/dad extensively - they expressed understanding and appreciation. since presentation most c/w upper GI and not strikingly c/w pericarditis - OK for home/no further treatment at this time. otherwise as above
[2023-03-22 08:43] LABS: Appearance Urine Turbid (Clear); Bilirubin Urine Negative (Negative); Blood Urine Negative (Negative); Color Urine Yellow; Epithelial Cell Urine Auto >30 /lpf (0-5); Glucose Urine UA Negative (Negative); Ketones Urine Negative (Negative); Leukocyte Esterase Urine 1+ (Negative); Nitrite Urine Negative (Negative); Protein Urine Negative (Negative); Specific Gravity Urine 1.016 (1.000-1.030); Urobilinogen Urine Negative (Negative); pH Urine 7.5 (4.5-7.5)
[2023-03-22] MEDS ORDERED: COLCHICINE 0.6 MG TAB PO SCH (09:00)
[2023-03-22 09:04] LABS: Amphetamines+Metham, Urine Neg (Neg); Barbiturates, Urine Neg (Neg); Benzodiazepine, Urine Neg (Neg); Cocaine, Urine Neg (Neg); MDMA (Ecstacy), Urine Neg (Neg); Methadone, Urine Neg (Neg); Opiate, Urine Neg (Neg); Phencyclidine, Urine Neg (Neg)
[2023-03-22 09:08] LABS: RBC Urine Automated 0-4 /hpf (0-4)
[2023-03-22 09:09] LABS: Amorphous Sediment Urine Present (None Prsent); Cast Urine Automated 0 /lpf (0-5)
[2023-03-22 09:11] LABS: Bacteria Urine Automated 1+ (Negative)
--- NOTE | 2023-03-22 11:47 | XCELERA ---
[id number]
--- NOTE | 2023-03-22 13:00 | Electrocardiogram Report ---
Test Reason : Blood Pressure : / mmHG Vent. Rate : 088 BPM Atrial Rate : 088 BPM P-R Int : 138 ms QRS Dur : 080 ms QT Int : 360 ms P-R-T Axes : 067 089 012 degrees QTc Int : 435 ms Normal sinus rhythm Persistent juvenile T wave pattern vs anterolateral T wave abnormality Abnormal ECG No previous ECGs available Confirmed by Jaden Alvarado ([id number]) on 03/22/2023 12:59:38 PM Referred By: REFERRED SELF Confirmed By:Jaden Alvarado
--- NOTE | 2023-03-22 13:07 | Electrocardiogram Report ---
Test Reason : Blood Pressure : / mmHG Vent. Rate : 113 BPM Atrial Rate : 113 BPM P-R Int : 142 ms QRS Dur : 080 ms QT Int : 320 ms P-R-T Axes : 046 091 -25 degrees QTc Int : 438 ms Sinus tachycardia Rightward axis Abnormal ECG When compared with ECG of 21-MAR-2023 17:02, (unconfirmed) No significant change was found Confirmed by Jaden Alvarado ([id number]) on 03/22/2023 1:06:51 PM Referred By: REFERRED SELF Confirmed By:Jaden Alvarado
--- NOTE | 2023-03-22 18:30 | Billing Data ---
Date of Service March 22, 2023 Coding Level of Care Code 24306 IN/OBS DISCH 30 MIN/LESS
[2023-03-25 21:29] LABS: Babesia microti DNA Not Detected (Not Detected)
[2023-03-27 13:08] LABS: Ehrlichia chaff DNA Bld Negative (Negative)
== END 2023-03-22 13:15 | disposition home or self-care (01) | DRG 314 ==
LOC: ED 15:43 → EDINP 23:42 → SUATTDRO 23:42 → EDINP 03-22 01:39